=== PATIENT | male | born 1975 | race Caucasian/White ===

== ENCOUNTER → 2018-09-21 10:03 | Outpatient (CLI) | payer OTHER, SELFPAY ==
[2018-09-21 12:05] LABS: BUN Creatinine Ratio 14.5 (6-22); Blood Urea Nitrogen 16 mg/dL (9-20); Calcium 9.4 mg/dL (8.4-10.2); Carbon Dioxide 24 mmol/L (22-32); Chloride 103 mmol/L (98-107); Estimated Glomerular Filt Rate > 60.0 mL/min (>60); Glucose 89 mg/dL (70-100); HEMOLYSIS < 15 (0-50); Potassium 4.5 mmol/L (3.4-5.1); Sodium 142 mmol/L (137-145)
== END ==
PROVIDERS: PCP Family Medicine; Visit Provider Family Medicine
DX: I10 Essential (primary) hypertension (principal)
CPT/HCPCS: 36415; 80048

== ENCOUNTER → 2019-03-04 12:45 | Outpatient (CLI) | payer OTHER, SELFPAY | PROVIDERS: PCP Family Medicine; Visit Provider Physician Assistant | DX: J02.9 Acute pharyngitis, unspecified (principal) | CPT/HCPCS: 87070 ==

== ENCOUNTER → 2019-09-27 08:39 | Outpatient (CLI) | payer OTHER, SELFPAY ==
[2019-09-27 09:48] LABS: Add Manual Diff / Slide Review NO; Basophils Absolute Auto 0 /uL (0-100); Basophils Percent Auto 0.5 % (0-2); Eosinophils Absolute Auto 100 /uL (0-450); Eosinophils Percent Auto 1.4 % (2-4); Hemoglobin 15.4 g/dL (13.5-17.5); Lymphocytes Absolute Auto 1600 /uL (1100-4500); Lymphocytes Percent Auto 29.7 % (25-40); Mean Corpuscular HGB Conc 34.2 % (30-36); Mean Corpuscular Hemoglobin 31.4 PG (26-34); Mean Corpuscular Volume 92.1 fL (80-100); Monocytes Absolute Auto 500 /uL (0-900); Monocytes Percent Auto 9.1 % (3-14); Neutrophils Absolute Auto 3200 /uL (1500-7000); Neutrophils Percent Auto 59.3 % (50-75); Platelet Count 266 X10^3/uL (150-400); Red Blood Cell Count 4.89 X10^6/uL (4.5-5.9); Red Cell Distribution Width 12.9 % (11.6-14.8); White Blood Cell Count 5.4 X10^3/uL (4.5-11.0)
[2019-09-27 10:14] LABS: Creatinine Urine Random 23.1 mg/dL
[2019-09-27 10:17] LABS: Alanine Aminotransferase 29 IU/L (<50); Albumin 4.5 g/dL (3.5-5.0); Albumin Globulin Ratio 1.8 (1.0-2.8); Alkaline Phosphatase 67 U/L (38-126); Aspartate Aminotransferase 30 IU/L (17-59); BUN Creatinine Ratio 20.9 (6-22); Bilirubin Total 0.9 mg/dL (0.2-1.3); Blood Urea Nitrogen 23 mg/dL (9-20); Calcium 9.4 mg/dL (8.4-10.2); Carbon Dioxide 26 mmol/L (22-32); Chloride 100 mmol/L (98-107); Cholesterol 262 mg/dL (140-199); Estimated Glomerular Filt Rate > 60.0 mL/min (>60); Globulin 2.5 g/dL (1.7-4.1); Glucose 87 mg/dL (70-100); HDL Cholesterol 57 mg/dL (40-60); HEMOLYSIS < 15 (0-50); LDL Cholesterol Calculated 191 mg/dL (<100); Potassium 4.8 mmol/L (3.4-5.1); Sodium 136 mmol/L (137-145); Triglycerides 72 mg/dL (35-150)
[2019-09-27 10:41] LABS: TSH w/ Reflex to FT4 1.03 uIU/mL (0.47-4.68)
[2019-09-27 10:43] LABS: Microalbumi Creatinin Ratio Ur 25.9 ug/mg CR (<30); Microalbumin Urine Random < 0.6 mg/dL (0-1.6)
== END ==
PROVIDERS: PCP Family Medicine; Visit Provider Family Medicine
DX: Z13.0 Encounter for screening for diseases of the blood and blood-forming organs and certain disorders involving the immune mechanism (principal); Z13.29 Encounter for screening for other suspected endocrine disorder; E78.5 Hyperlipidemia, unspecified; I10 Essential (primary) hypertension
CPT/HCPCS: 36415; 80053; 80061; 82043; 82570; 84443; 85025

== ENCOUNTER → 2020-10-14 09:08 | Outpatient (CLI) | payer OTHER, SELFPAY ==
[2020-10-14 11:03] LABS: Alanine Aminotransferase 27 IU/L (<50); Albumin 4.2 g/dL (3.5-5.0); Albumin Globulin Ratio 1.5 (1.0-2.8); Alkaline Phosphatase 56 U/L (38-126); Aspartate Aminotransferase 26 IU/L (17-59); BUN Creatinine Ratio 13.6 (6-22); Bilirubin Total 0.5 mg/dL (0.2-1.3); Blood Urea Nitrogen 14 mg/dL (9-20); Calcium 9.1 mg/dL (8.4-10.2); Carbon Dioxide 30 mmol/L (22-32); Chloride 102 mmol/L (98-107); Cholesterol 208 mg/dL (140-199); Estimated Glomerular Filt Rate > 60.0 mL/min (>60); Globulin 2.8 g/dL (1.7-4.1); Glucose 91 mg/dL (70-100); HDL Cholesterol 53 mg/dL (40-60); HEMOLYSIS < 15 (0-50); LDL Cholesterol Calculated 126 mg/dL (<100); Potassium 4.5 mmol/L (3.4-5.1); Sodium 137 mmol/L (137-145); Triglycerides 144 mg/dL (35-150)
== END ==
PROVIDERS: PCP Family Medicine; Referring Provider Family Medicine; Visit Provider Family Medicine
DX: E78.5 Hyperlipidemia, unspecified (principal); I10 Essential (primary) hypertension
CPT/HCPCS: 36415; 80053; 80061

== ENCOUNTER → 2020-11-02 11:42 | Outpatient (CLI) | payer OTHER, SELFPAY ==
[2020-11-02 12:00] LABS: COVID19 -Nasal RAPID POSITIVE (Negative)
== END ==
PROVIDERS: PCP Family Medicine; Visit Provider Physician Assistant
DX: U07.1 COVID-19 (principal)
CPT/HCPCS: 87635

== ENCOUNTER → 2021-08-27 15:05 | Outpatient (CLI) | payer OTHER, SELFPAY ==
[2021-08-27] MEDS: COVID-19 VACC #3, MRNA(MOD) 50 MCG/0.25 ML VIAL IM (15:12)
== END ==
PROVIDERS: PCP Family Medicine; Visit Provider Internal Medicine
DX: Z23 Encounter for immunization (principal)
CPT/HCPCS: 0013A; 91301

== ENCOUNTER → 2021-10-14 08:09 | Outpatient (CLI) | payer OTHER, SELFPAY ==
[2021-10-14 09:05] LABS: Add Manual Diff / Slide Review NO; Basophils Absolute Auto 0 /uL (0-100); Basophils Percent Auto 0.8 % (0-2); Eosinophils Absolute Auto 200 /uL (0-450); Hematocrit 45.5 % (41-53); Hemoglobin 15.6 g/dL (13.5-17.5); Lymphocytes Absolute Auto 2100 /uL (1100-4500); Lymphocytes Percent Auto 37.3 % (25-40); Mean Corpuscular HGB Conc 34.2 % (30-36); Mean Corpuscular Volume 90.6 fL (80-100); Monocytes Absolute Auto 500 /uL (0-900); Monocytes Percent Auto 9.3 % (3-14); Neutrophils Absolute Auto 2800 /uL (1500-7000); Neutrophils Percent Auto 49.6 % (50-75); Platelet Count 252 X10^3/uL (150-400); Red Blood Cell Count 5.03 X10^6/uL (4.5-5.9); Red Cell Distribution Width 12.8 % (11.6-14.8); White Blood Cell Count 5.6 X10^3/uL (4.5-11.0)
[2021-10-14 09:46] LABS: Alanine Aminotransferase 30 IU/L (<50); Albumin 4.3 g/dL (3.5-5.0); Albumin Globulin Ratio 1.7 (1.0-2.8); Alkaline Phosphatase 55 U/L (38-126); Aspartate Aminotransferase 27 IU/L (17-59); BUN Creatinine Ratio 11.1 (6-22); Bilirubin Total 0.6 mg/dL (0.2-1.3); Blood Urea Nitrogen 12 mg/dL (9-20); Calcium 9.2 mg/dL (8.4-10.2); Carbon Dioxide 29 mmol/L (22-32); Chloride 105 mmol/L (98-107); Cholesterol 203 mg/dL (140-199); Estimated Glomerular Filt Rate > 60.0 mL/min (>60); Globulin 2.6 g/dL (1.7-4.1); Glucose 96 mg/dL (70-100); HDL Cholesterol 49 mg/dL (40-60); HEMOLYSIS < 15 (0-50); LDL Cholesterol Calculated 133 mg/dL (<100); Potassium 4.1 mmol/L (3.4-5.1); Sodium 137 mmol/L (137-145); Total Protein 6.9 g/dL (6.3-8.2); Triglycerides 106 mg/dL (35-150)
== END ==
PROVIDERS: PCP Family Medicine; Referring Provider Family Medicine; Visit Provider Family Medicine
DX: E78.2 Mixed hyperlipidemia (principal); I10 Essential (primary) hypertension
CPT/HCPCS: 36415; 80053; 80061; 85025

== ENCOUNTER → 2022-10-07 07:46 | Outpatient (CLI) | payer OTHER, SELFPAY ==
[2022-10-07 11:21] LABS: Alanine Aminotransferase 40 IU/L (<50); Albumin 4.3 g/dL (3.5-5.0); Albumin Globulin Ratio 1.6 (1.0-2.8); Alkaline Phosphatase 70 U/L (38-126); Aspartate Aminotransferase 32 IU/L (17-59); BUN Creatinine Ratio 12.3 (6-22); Bilirubin Total 0.7 mg/dL (0.2-1.3); Blood Urea Nitrogen 13 mg/dL (9-20); Carbon Dioxide 29 mmol/L (22-32); Chloride 99 mmol/L (98-107); Cholesterol 255 mg/dL (140-199); Estimated Glomerular Filt Rate > 60 mL/min (>60); Globulin 2.7 g/dL (1.7-4.1); Glucose 86 mg/dL (70-100); HDL Cholesterol 52 mg/dL (40-60); HEMOLYSIS < 15 (0-50); LDL Cholesterol Calculated 169 mg/dL (<100); Potassium 4.6 mmol/L (3.4-5.1); Sodium 137 mmol/L (137-145); Triglycerides 168 mg/dL (35-150)
== END ==
PROVIDERS: PCP Family Medicine; Referring Provider Family Medicine; Visit Provider Family Medicine
DX: E78.2 Mixed hyperlipidemia (principal); I10 Essential (primary) hypertension
CPT/HCPCS: 36415; 80053; 80061

== ENCOUNTER 2023-01-06 12:14 | Day surgery (SDC) | payer OTHER, SELFPAY ==
[2023-01-06 12:30] VITALS: BP 123/79; PULSE 94; RESP 20; TEMP 36.2; O2SAT 96; BMI 30.3
--- NOTE | 2023-01-06 12:31 | PM.HP.1 ---
History of Present Illness History of Present Illness Date Patient Seen: 01/06/23 Time Patient Seen: 12:32 Chief complaint: Screening Colonoscopy Narrative: No symptoms, no family history for colon cancer. 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 Patient History Medical History Hearing deficit Hypertension (~2013) Patellofemoral pain, chronic (~2010) Seasonal allergies Tinnitus (~2010) Family & Social History Family History Grandfather Cancer Grandmother No problems noted. Social History: household members spouse Tobacco & Substance use: Smoking Status Never smoker alcohol intake current Meds Home Medications and Allergies Home Medications Medication Instructions Recorded Confirmed Type lisinopril 10 mg tablet See Rx Instructions .Route 10/10/22 01/06/23 Rx .COMPLEX #90 tabs Allergies Allergy/AdvReac Type Severity Reaction Status Date / Time No Known Drug Allergies Allergy Verified 01/06/23 12:29 Review of Systems Review of Systems ROS: Yes All systems reviewed with the patient and are negative except as otherwise documented Exam Const General: cooperative and healthy appearing Nutritional Appearance: average body habitus HENMT Head: normocephalic and atraumatic Ears: hearing grossly normal bilaterally Face and sinus: normal facial exam Eyes General: appearance normal, both eyes and all related structures Sclera: sclerae normal Neck Neck: trachea midline Resp Effort & Inspection: normal respiratory effort and able to speak in complete sentences Auscultation: clear to auscultation bilaterally Cardio Rate: regular rate Rhythm: regular rhythm GI Palpation: soft Skin General: elasticity normal Neuro General: patient alert, patient awake and patient oriented x3 Extrem General: normal to inspection Psych Mental Status: mental status grossly normal Judgment: judgment good Assessment & Plan Assessment & Plan narrative: Colon cancer screening using colonoscopy and MAC Time Spent With Patient Time with patient: less than 30 minutes Critical Care time: I spent a total of [] minutes of critical care time on this patient's care today; this time is exclusive of procedural time.
[2023-01-06] MEDS: LACTATED RINGERS 1,000 ML 42 ML IV (12:34)
--- NOTE | 2023-01-06 13:11 | PM.OP.COLON ---
Operative Date/Time/Diagnoses Date of procedure: 01/06/23 Time of procedure: 13:11 Pre-op diagnosis: screening colonoscopy Post-op diagnosis: same Procedure & Clinicians Study performed: Colonoscopy under MAC Same procedure as scheduled: Yes Indications: Screening for colon cancer Surgeon: Natividad Rosario Procedure Notes SCOAP/Timeout: Done Procedure in detail: Preop diagnosis: Colon cancer screening Postop diagnosis: Same Operative procedure: Colonoscopy under MAC Surgeon: Lashon Rosario MD Findings: Small scant diverticulosis of the sigmoid colon. No polyps Procedure: Patient placed in lateral position. Rectal exam performed showing normal tone no masses. Colonoscope inserted into the rectum and advanced to ileocecal valve with minimal difficulty. Insufflation and extraction of the scope and the above findings. Retroflex was included in the rectum. Impression: Small scant diverticulosis of the sigmoid colon. No polyps Plan: Repeat colonoscopy in 10 years unless otherwise indicated by change in clinical condition or family history Findings: divertiulosis Specimen(s): none sent Complications: none Impression: Small, scant diverticulosis of the sigmoid colon. No polyps. Post-procedure Recommendations: Colonoscopy in 10 years Follow up: as needed Disposition: PACU
[2023-01-06 13:14] VITALS: BP 102/63; PULSE 89; RESP 17; TEMP 36.6; O2SAT 95
[2023-01-06 13:18] VITALS: BP 110/56; PULSE 88; RESP 13; O2SAT 96
[2023-01-06 13:20] VITALS: BP 109/67; PULSE 81; RESP 13; O2SAT 95
[2023-01-06 13:26] VITALS: BP 111/67; PULSE 74; RESP 15; TEMP 36.6; O2SAT 96
[2023-01-06 13:32] VITALS: BP 112/74; PULSE 81; RESP 14; O2SAT 96
== END 2023-01-06 13:46 | disposition home or self-care (01) ==
PROVIDERS: PCP Family Medicine; Referring Provider Surgery; Visit Provider Surgery
PROC: 0DJD8ZZ Inspection of Lower Intestinal Tract, Via Natural or Artificial Opening Endoscopic (ICD-10-PCS; CPT 45378; principal; 2023-01-06 15:00)
DX: Z12.11 Encounter for screening for malignant neoplasm of colon (principal); K57.30 Diverticulosis of large intestine without perforation or abscess without bleeding
CPT/HCPCS: 45378; J2704

== ENCOUNTER → 2023-06-30 10:14 | Outpatient (CLI) | payer OTHER, SELFPAY ==
[2023-06-30 13:02] LABS: Testosterone 374 ng/dL (132-813)
== END ==
PROVIDERS: PCP Family Medicine; Referring Provider Family Medicine; Visit Provider Family Medicine
DX: R68.82 Decreased libido (principal)
CPT/HCPCS: 36415; 84403

== ENCOUNTER → 2023-10-04 07:14 | Outpatient (CLI) | payer OTHER, SELFPAY ==
--- NOTE | 2023-10-04 07:26 | DI.CT.S_ITS ---
PROCEDURE: CT SINUS SCREEN WO CON INDICATIONS: CHRONIC PANSINUSITIS TECHNIQUE: Noncontrast 3.0 mm axial images acquired from the frontal sinuses to the mid-sella, with coronal and sagittal reformats. For radiation dose reduction, the following was used: automated exposure control, adjustment of mA and/or kV according to patient size. COMPARISON: None. FINDINGS: Image quality: Excellent. Maxillary Sinuses: No bony remodeling or destruction. Mild mucosal thickening.. Ethmoid Air Cells: No bony remodeling or destruction. Mild mucosal thickening of the anterior ethmoid air cells. Sphenoid Sinuses: No bony remodeling or destruction. Minimal mucosal thickening. Frontal Sinuses: No bony remodeling or destruction. Sinuses are clear. Ostiomeatal Complexes: Ostiomeatal complexes are patent but narrowed by bilateral Beckie cells. Miscellaneous: Visualized intra-orbital contents are normal. No damaso bullosa or paradoxical turbinate curvature. Mild rightward nasal septal deviation with spurring. IMPRESSION: Mild paranasal sinus disease as above. Ostiomeatal complexes are patent but narrowed by bilateral Beckie cells. Dictated by: Jim Villarreal M.D. on 10/04/2023 at 9:08 Approved by: Jim Villarreal M.D. on 10/04/2023 at 9:14
== END ==
PROVIDERS: PCP Family Medicine; Referring Provider Physician Assistant; Visit Provider Physician Assistant
DX: J32.4 Chronic pansinusitis (principal)
CPT/HCPCS: 70486

== ENCOUNTER → 2023-10-20 09:38 | Outpatient (CLI) | payer OTHER, SELFPAY ==
[2023-10-20 10:48] LABS: Hemoglobin A1C% w Est Avg Glu 5.3 % (4.0-6.0)
[2023-10-20 10:59] LABS: Alanine Aminotransferase 33 IU/L (<50); Albumin 4.4 g/dL (3.5-5.0); Albumin Globulin Ratio 1.7 (1.0-2.8); Alkaline Phosphatase 52 U/L (38-126); Aspartate Aminotransferase 30 IU/L (17-59); BUN Creatinine Ratio 14.3 (6-22); Bilirubin Total 0.9 mg/dL (0.2-1.3); Blood Urea Nitrogen 14 mg/dL (9-20); Calcium 9.5 mg/dL (8.4-10.2); Carbon Dioxide 28 mmol/L (22-32); Chloride 101 mmol/L (98-107); Cholesterol 242 mg/dL (140-199); Estimated Glomerular Filt Rate > 60 mL/min (>60); Globulin 2.6 g/dL (1.7-4.1); Glucose 89 mg/dL (70-100); HDL Cholesterol 50 mg/dL (40-60); HEMOLYSIS < 15 (0-50); LDL Cholesterol Calculated 156 mg/dL (<100); Potassium 4.9 mmol/L (3.4-5.1); Sodium 137 mmol/L (137-145); Triglycerides 182 mg/dL (35-150)
== END ==
PROVIDERS: PCP Family Medicine; Referring Provider Family Medicine; Visit Provider Family Medicine
DX: Z00.00 Encounter for general adult medical examination without abnormal findings (principal); E78.5 Hyperlipidemia, unspecified; I10 Essential (primary) hypertension
CPT/HCPCS: 36415; 80053; 80061; 83036

== ENCOUNTER 2024-07-18 12:42 | Day surgery (SDC) | payer OTHER, SELFPAY ==
[2024-07-17 08:21] VITALS: BMI 31.6
[2024-07-18] MEDS: ACETAMINOPHEN 325 MG TABLET 975 MG PO (12:58)
[2024-07-18 12:59] VITALS: BP 122/72; PULSE 91; RESP 18; TEMP 36.6; O2SAT 96; BMI 31.6
[2024-07-18] MEDS: LACTATED RINGERS 1,000 ML 42 ML IV (13:12)
[2024-07-18] MEDS: OXYMETAZOLINE NASAL SPRAY 30 ML 2 SPRAYS NASAL (13:23)
--- NOTE | 2024-07-18 14:28 | P.HP_ITS ---
History of Present Illness History of Present Illness Date Patient Seen: 07/18/24 Time Patient Seen: 14:28 Chief complaint: Septoplasty & turbinate reduction Narrative: 48-year-old male last seen in clinic 05/07/2024 presents for scheduled septoplasty and inferior turbinate reduction due to his persistent nasal obstruction, despite multiple attempts at medical therapy. No interval health changes, wishes to proceed. [facility] Medical History Hearing deficit Seasonal allergies Patellofemoral pain, chronic (~2010) Tinnitus (~2010) Hypertension (~2013) Family History Grandfather Cancer Grandmother No problems noted. Social History marital status: number of children: 1 household members: spouse occupational status: employed ([employer]) Smoking Status: Never smoker alcohol intake: current substance use type: does not use Meds Home Medications and Allergies Home Medications Medication Instructions Recorded Confirmed Type cetirizine 10 mg tablet (Zyrtec) 10 mg PO DAILY PRN allergies 06/30/23 07/18/24 History azelastine 137 mcg (0.1 %) nasal 137 mcg (0.137 mL) intranasal BID 10/20/23 07/17/24 Rx spray PRN allergies #30 mL lisinopril 10 mg tablet 10 mg PO DAILY 07/17/24 07/18/24 History Allergies Allergy/AdvReac Type Severity Reaction Status Date / Time No Known Drug Allergies Allergy Verified 07/18/24 13:19 Review of Systems Review of Systems Narrative: Negative except as listed in the HPI Exam Vital Signs (past 8 hours): - 07/18/24 12:59 Temperature 97.9 F Pulse Rate 91 H Respiratory Rate 18 Blood Pressure 122/72 Pulse Oximetry 96 Oxygen Delivery Method Room Air Oxygen Delivery Method Room Air Narrative Exam Narrative: Well-developed well-nourished, heart regular rate and rhythm without murmur, lungs clear to auscultation bilaterally Assessment & Plan Assessment & Plan narrative: Assessment: Nasal airway obstruction, septal deviation, inferior turbinate hypertrophy Plan: Following discussion of the material risks benefits complications and alternatives, the patient elected to proceed. Time-Based Coding :: [TOTAL MINUTES] spent with patient and on the chart (including review of chart, obtaining history, exam, reviewing outside data, placing orders, documenting exam and treatment plan, and counseling patient) on [DATE].
--- NOTE | 2024-07-18 14:28 | PM.PREOP ---
Pre-operative Note Interval Note History & Physical reviewed/Exam performed by Physician: Yes Changes to H&P: No
--- NOTE | 2024-07-18 14:29 | PM.OP.1 ---
Operative Date/Time/Diagnoses Date of procedure: 07/18/24 Time of procedure: 15:49 Pre-op diagnosis: Nasal airway obstruction, septal deviation, inferior turbinate hypertrophy Post-op diagnosis: same Procedure & Clinicians Procedure: 1. Septoplasty 2. Bilateral inferior turbinate reduction via intramural cautery Same procedure as scheduled: Yes Indications: 48 Year old with the above diagnoses incompletely managed with medical therapy presents for the above procedure. Following discussion of the material risks benefits complications and alternatives, the patient elected to proceed. Surgeon: Kishor Young Click Yes if Unassisted: Yes Anesthesia Type: General and Local Operative Notes Findings: 2 to 3+ right anterior superior septal deviation, [id number]-right inferior turbinate hypertrophy Estimated Blood Loss (mL): 55 Procedure in detail: Following identification and confirmation of consent as well as preoperative Afrin nasal spray, the patient was brought to the operating room suite and placed in the supine position. General endotracheal anesthesia was administered. I infiltrated the septum widely bilaterally with 1% lidocaine 1 100,000 epinephrine followed by temporary packing with cotton with Afrin and 4% lidocaine. Following sterile prep and drape, the packing was removed and I performed a right juanito-transfixion incision, elevated the right mucoperichondrial and mucoperiosteal flap. I disarticulated near the bony/cartilaginous junction and elevated the left mucoperiosteal flap. Deviated portions of the perpendicular plate of the ethmoid and vomer were resected. The residual quadrilateral cartilage was further straightened by trimming it inferiorly as well as reducing the maxillary crest. A 2 mm strip of cartilage paralleling the residual 1 cm dorsal and caudal strut was resected to further straighten the quadrilateral cartilage. The hemitransfixion incision was closed with interrupted 5 0 chromic followed by a running 4 0 plain gut mattress suture to reapproximate the septal flaps. At case completion, Rai air channel splints were placed bilaterally, sutured anteriorly with a single 4 0 nylon. The head of each inferior turbinate had been previously infiltrated with additional local anesthetic and a 25 gauge spinal needle was used to impale the length of the turbinate, with cautery on a setting of 15 activated on slow withdrawal over 2 passes LEFT, 3 RIGHT. The turbinates were then outfractured. The procedure completed, sponge and needle counts were correct and the patient was extubated in the operating room and taken to recovery room in stable condition without known complication. Postoperative care: Nasal saline every hour while awake, Polysporin to the nostrils at all times, begin irrigations t.i.d. beginning pod 1. Humidifier at the bedside blowing on the face. Tylenol alternating with Advil for pain control, oxycodone if necessary for breakthrough pain. Complications: none Post-operative Condition: stable Disposition: same day surgery Plan for aftercare: Nasal saline every hour while awake, begin irrigations t.i.d. tomorrow if desired. Polysporin to the nostrils at all times, Tylenol alternating with Advil for pain control, oxycodone for breakthrough pain. Elevate head of bed, no nose blowing, no straining for 2 weeks. Ice directly under the nose on the upper lip has tolerated 24-48 hours at a minimum. Follow-up in 1 week for nasal splint removal.
--- NOTE | 2024-07-18 14:30 | SUR.OPER ---
Supine on padded OR bed, head on gel donut, arms padded and tucked at sides, legs uncrossed, safety belt at thigh, tape over blanket over lower legs .
[2024-07-18] MEDS: LIDOCAINE 1% W/EPI 20 ML INJ (14:58)
[2024-07-18] MEDS: LIDOCAINE 4% SOLN 50 ML 20 ML TOP (14:58)
[2024-07-18] MEDS: BACITRACIN OINT 0.9 GM PCKT 1 APPLIC TOP (15:00)
[2024-07-18 15:59] VITALS: BP 143/94; PULSE 98; RESP 11; TEMP 36.7; O2SAT 96
[2024-07-18 16:04] VITALS: BP 140/85; PULSE 93; RESP 12; O2SAT 96
[2024-07-18] MEDS: OXYCODONE IR 5 MG TABLET PO (16:07)
[2024-07-18 16:09] VITALS: BP 136/88; PULSE 89; RESP 10; O2SAT 96
[2024-07-18 16:10] VITALS: BP 143/98; PULSE 88; RESP 11; O2SAT 96
[2024-07-18 16:15] VITALS: BP 140/95; PULSE 84; RESP 12; TEMP 36.4
== END 2024-07-18 16:36 | disposition home or self-care (01) ==
PROVIDERS: PCP Family Medicine; Referring Provider Otolaryngology; Visit Provider Otolaryngology
PROC: (CPT 30520; principal; 2024-07-18 14:15)
DX: J34.2 Deviated nasal septum (principal); J34.89 Other specified disorders of nose and nasal sinuses; J34.3 Hypertrophy of nasal turbinates; J30.1 Allergic rhinitis due to pollen
CPT/HCPCS: 30520; 30802; J0330; J1100; J2250; J2405; J2704; J3010

== ENCOUNTER → 2024-10-22 08:08 | Outpatient (CLI) | payer OTHER, SELFPAY ==
[2024-10-22 08:55] LABS: Hematocrit 46.6 % (41-53); Mean Corpuscular HGB Conc 34.2 % (30-36); Mean Corpuscular Hemoglobin 31.5 PG (26-34); Mean Corpuscular Volume 92.1 fL (80-100); Platelet Count 302 X10^3/uL (150-400); Red Blood Cell Count 5.06 X10^6/uL (4.5-5.9); Red Cell Distribution Width 12.8 % (11.6-14.8); White Blood Cell Count 5.8 X10^3/uL (4.5-11.0)
[2024-10-22 09:05] LABS: Hemoglobin A1C% w Est Avg Glu 5.1 % (4.0-6.0)
[2024-10-22 09:10] LABS: Cholesterol 248 mg/dL (140-199); HDL Cholesterol 46 mg/dL (40-60); LDL Cholesterol Calculated 166 mg/dL (<100); Triglycerides 182 mg/dL (35-150)
[2024-10-22 09:42] LABS: Testosterone 361 ng/dL (132-813)
[2024-10-22 10:43] LABS: HIV 1 & 2 Ab/Ag 4th Gen Combo NEGATIVE (NEGATIVE); Hep C Virus Ab w/Reflex Quant NEGATIVE s/c (NEGATIVE)
== END ==
PROVIDERS: PCP Family Medicine; Referring Provider Family Medicine; Visit Provider Family Medicine
DX: Z00.00 Encounter for general adult medical examination without abnormal findings (principal); E78.5 Hyperlipidemia, unspecified; I10 Essential (primary) hypertension; N52.9 Male erectile dysfunction, unspecified
CPT/HCPCS: 36415; 80061; 83036; 84403; 85027; 86803; 87389

== ENCOUNTER → 2025-03-18 15:03 | Outpatient (CLI) | payer OTHER, SELFPAY ==
--- NOTE | 2025-03-18 15:11 | DI.MRI.S_ITS ---
PROCEDURE: MR SHOULDER RT WO CON INDICATIONS: RT SHOULDER PAIN TECHNIQUE: Noncontrast oblique coronal T2 fast spin echo with fat saturation, oblique sagittal T1 spin echo and T2 fast spin echo with fat saturation, axial T1 spin echo and T2 fast spin echo with fat saturation through the shoulder. COMPARISON: None. FINDINGS: Image quality: Excellent. Rotator cuff: The subscapularis tendon is intact. There is fluid in the subscapular recess. The supraspinatus tendon demonstrates increased signal near its footplate. No tear, retraction or muscle atrophy is identified. Infraspinatus tendon is unremarkable. Teres minor appears normal. Bones and bursae: There are degenerative changes involving the acromioclavicular joint. No significant fluid is seen in the subacromial bursa. Capsule and soft tissues: There is fluid in the biceps tendon sheath. The labrum is grossly normal. IMPRESSION: Supraspinatus tendinopathy and fluid in the subscapularis recess. No evidence of a complete rotator cuff tear. Dictated by: Geneva Barkley M.D. on 03/19/2025 at 15:03 Approved by: Geneva Barkley M.D. on 03/19/2025 at 15:11
--- NOTE | 2025-03-18 15:11 | DI.MRI.S_ITS ---
PROCEDURE: MR KNEE LT WO CON INDICATIONS: TRAUMATIC INJURY TO LEFT KNEE TECHNIQUE: Noncontrast sagittal PD fast spin echo and T2 fast spin echo with fat saturation, sagittal 3-D FLASH with fat saturation; coronal T1 spin echo and PD fast spin echo with fat saturation, and axial PD fast spin echo with fat saturation through the knee. COMPARISON: Left knee radiograph dated 08/15/2016. FINDINGS: Image quality: Excellent. Menisci: Suggestion of subtle oblique tear involving posterior horn of medial meniscus extending to medial periphery of inferior articulating surface. There is also suggestion of subtle oblique tear involving posterior horn of lateral meniscus near its posterior lateral meniscal root insertion. Cruciate ligaments: The anterior and posterior cruciate ligaments appear intact. Medial structures: The medial collateral ligament appears thickened with surrounding soft tissue edema. Visualized portions of the pes anserinus tendons appear normal. No abnormal bursal fluid. Lateral structures: The lateral collateral ligament, long and short heads of the biceps femoris tendon appear intact. The popliteus tendon appears normal. Iliotibial band appears normal. Anterior structures: The quadriceps and patellar tendons appear intact. Patellar alignment is normal. Bones and cartilage: Focal area of full-thickness cartilage defect involving posterior weight-bearing portion of medial femoral condyle measures 7 x 2 x 14 mm in size with underlying osteochondral injury and marrow edema. No other area of marrow edema or fracture. Patellar cartilage is intact. Low-grade chondromalacia in lateral femoral tibial compartment is also seen. Joint space: There is small knee joint fluid. There is a popliteal cyst measures up to 1.6 x 1.1 x 6.6 cm in size.. Normal appearing synovial plicae are incidentally noted. IMPRESSION: 1. Subtle oblique tear involving posterior horn of medial meniscus extending to medial periphery of inferior articulating surface. Subtle oblique tear also noted in posterior horn of lateral meniscus near its posterior lateral meniscal root extending to inferior articulating surface. 2. Low to moderate grade MCL sprain. The cruciate ligaments are intact. 3. Focal full-thickness cartilage defect involving posterior weight-bearing portion of medial femoral condyle measures 7 x 2 x 14 mm in size with underlying osteochondral injury. Low-grade chondromalacia also seen in lateral femoral tibial compartment. Patellar cartilage is intact. 4. Small joint effusion and a popliteal cyst as above. No loose bodies. Dictated by: Guerrero Kumar M.D. on 03/19/2025 at 10:01 Approved by: Guerrero Kumar M.D. on 03/19/2025 at 10:07
== END ==
PROVIDERS: PCP Family Medicine
DX: S83.242A Other tear of medial meniscus, current injury, left knee, initial encounter (principal); S83.282A Other tear of lateral meniscus, current injury, left knee, initial encounter; S83.412A Sprain of medial collateral ligament of left knee, initial encounter; M25.462 Effusion, left knee; M94.262 Chondromalacia, left knee; M25.562 Pain in left knee; M25.511 Pain in right shoulder; X58.XXXA Exposure to other specified factors, initial encounter
CPT/HCPCS: 73221; 73721

== ENCOUNTER → 2025-10-13 07:12 | Outpatient (CLI) | payer OTHER, SELFPAY ==
[2025-10-13 07:52] LABS: Hematocrit 46.0 % (41-53); Hemoglobin 15.7 g/dL (13.5-17.5); Mean Corpuscular HGB Conc 34.2 % (30-36); Mean Corpuscular Hemoglobin 31.2 PG (26-34); Mean Corpuscular Volume 91.2 fL (80-100); Platelet Count 274 X10^3/uL (150-400)
[2025-10-13 08:06] LABS: Hemoglobin A1C% w Est Avg Glu 5.2 % (4.0-6.0)
[2025-10-13 08:22] LABS: Alanine Aminotransferase 29 IU/L (<50); Albumin 4.6 g/dL (3.5-5.0); Albumin Globulin Ratio 1.6 (1.0-2.8); Alkaline Phosphatase 70 U/L (38-126); Blood Urea Nitrogen 19 mg/dL (9-20); Calcium 9.6 mg/dL (8.4-10.2); Carbon Dioxide 28 mmol/L (22-32); Chloride 102 mmol/L (98-107); Cholesterol 223 mg/dL (140-199); Estimated Glomerular Filt Rate > 60 mL/min (>60); Globulin 2.8 g/dL (1.7-4.1); Glucose 102 mg/dL (70-99); HDL Cholesterol 66 mg/dL (40-60); HEMOLYSIS 16 (0-50); Potassium 4.6 mmol/L (3.4-5.1); Sodium 138 mmol/L (137-145); Total Protein 7.4 g/dL (6.3-8.2); Triglycerides 100 mg/dL (35-150)
== END ==
PROVIDERS: PCP Family Medicine; Referring Provider Family Medicine; Visit Provider Family Medicine
DX: E78.2 Mixed hyperlipidemia (principal); I10 Essential (primary) hypertension; E66.811 Obesity, class 1
CPT/HCPCS: 36415; 80053; 80061; 82172; 83036; 85027

== ENCOUNTER → 2025-10-14 12:56 | Outpatient (CLI) | payer OTHER, SELFPAY | PROVIDERS: PCP Family Medicine; Referring Provider Nurse Practitioner Family; Visit Provider Nurse Practitioner Family | DX: L08.9 Local infection of the skin and subcutaneous tissue, unspecified (principal) | CPT/HCPCS: 87070; 87205 ==